=== PATIENT | male | born 1950 ===

== ENCOUNTER 2017-12-21 09:47 | Emergency (ER) | payer MEDICARE ==
[2017-12-21 10:19] VITALS: BMI 39.1
[2017-12-21 10:22] VITALS: O2SAT 96
--- NOTE | 2017-12-21 10:53 | ED PDOC ---
HPI: Male Pain Time Seen by Provider: 12/21/17 10:34 Chief Complaint (Nursing): Male Genitourinary Chief Complaint (Provider): testicle/ groin pain History Per: Patient, Family History/Exam Limitations: no limitations Onset/Duration Of Symptoms: Days (3) Severity: Moderate Quality Of Discomfort: Sharp Associated Symptoms: Fever, Chills. denies: Nausea, Vomiting, Diarrhea, Back Pain, Constipation, Urinary Symptoms Alleviating Factors: None Additional Complaint(s): 67yo male c/o right testicular pain and swelling for 3 days. Denies urinary symptoms but admits to some chills/fever. Past Medical History Reviewed: Historical Data, Nursing Documentation, Vital Signs Vital Signs: Last Vital Signs Temp 98.8 F 12/21/17 10:19 Pulse 73 12/21/17 10:19 Resp 17 12/21/17 10:19 BP 140/117 H 12/21/17 10:19 Pulse Ox 96 12/21/17 10:19 - Medical History PMH: Diabetes, HTN - Surgical History Other surgeries: shoulder, no abd surgeries - Family History Family History: States: Unknown Family Hx - Living Arrangements Living Arrangements: With Family - Social History Current smoker - smoking cessation education provided: No Alcohol: Occasional - Home Medications Home Medications: Ambulatory Orders Medication Instructions Recorded Ibuprofen [Motrin Tab] 600 mg PO Q6 PRN #15 tab 12/21/17 Levofloxacin [Levaquin] 750 mg PO DAILY #7 tablet 12/21/17 - Allergies Allergies/Adverse Reactions: Allergies Allergy/AdvReac Type Severity Reaction Status Date / Time No Known Allergies Allergy Verified 12/21/17 10:43 Review of Systems Constitutional: Positive for: Fever, Chills Cardiovascular: Negative for: Chest Pain, Palpitations Respiratory: Negative for: Cough, Shortness of Breath Gastrointestinal: Negative for: Nausea, Vomiting, Abdominal Pain Genitourinary Male: Positive for: Scrotal Pain. Negative for: Dysuria, Incontinence, Hematuria, Penile Discharge Musculoskeletal: Negative for: Neck Pain, Shoulder Pain, Back Pain, Leg Pain Skin: Negative for: Rash, Lesions, Jaundice Neurological: Negative for: Weakness, Numbness, Altered Mental Status, Dizziness Physical Exam - Reviewed Nursing Documentation Reviewed: Yes Vital Signs Reviewed: Yes - Physical Exam Appears: Positive for: Well, Non-toxic, No Acute Distress Head Exam: Positive for: ATRAUMATIC, NORMAL INSPECTION, NORMOCEPHALIC Skin: Positive for: Normal Color, Warm, DRY Eye Exam: Positive for: EOMI, Normal appearance, PERRL Cardiovascular/Chest: Positive for: Regular Rate, Rhythm Respiratory: Negative for: Respiratory Distress Gastrointestinal/Abdominal: Positive for: Bowel Sounds, Soft. Negative for: Tenderness Male Genital Exam: Positive for: scrotum tenderness (R), testicular tenderness ( R), other (R testicular edema). Negative for: bleeding, urethral discharge Back: Positive for: Normal Inspection Extremity: Positive for: Normal ROM. Negative for: Tenderness Neurologic/Psych: Positive for: Alert, Oriented. Negative for: Motor/Sensory Deficits - Laboratory Results Result Diagrams: 12/21/17 11:54 12/21/17 11:54 - ECG O2 Sat by Pulse Oximetry: 96 Medical Decision Making Medical Decision Making: workup for scrotal tenderness/edema initiated with bloodwork and US testicles r/ o abscess Accession No. : [id number] Patient Name / ID : SNEHA ALBARADO / [id number] Exam Date : 12/21/2017 11:59:02 ( Approved ) Study Comment : Sex / Age : M / 67Y Creator : Jesus Diaz MD Dictator : Jesus Diaz MD It Software Engineer : Phlebotomy Specialist : Jesus Diaz MD Approver2 : Report Date : 12/21/2017 12:49:24 My Comment : HISTORY: R testicular pain/swelling TECHNIQUE: Realtime sonography through the scrotum with color and doppler flow. COMPARISON: None Available. FINDINGS: RIGHT TESTICLE: Measures 2.6 x 2.7 x 2.4 cm. Normal echotexture and flow. RIGHT EPIDIDYMIS: Epididymal head measures 1.2 x 1.2 x 00.8 cm. Enlarged and edematous epididymal body measuring 0.9 x 3.6 cm. Heterogeneous, mildly edematous, increase flow consistent with acute epididymitis. LEFT TESTICLE: Measures 2.8 x 2.6 x 1.8 cm. Normal echotexture and flow. LEFT EPIDIDYMIS: Epididymal head measures 0.9 x 0.5 x 1.2 cm. Grossly unremarkable appearance with normal flow.Incidental finding(s): Simple cyst 0.4 cm HYDROCELE: Large septated hydrocele on the right. VARICOCELE: Bilateral right larger than left. OTHER FINDINGS: None. IMPRESSION: 1. Acute epididymitis, unilateral right-sided. The body of the epididymis is enlarged, heterogeneous and hypervascular. 2. Large septated right hydrocele. 3. Bilateral varicoceles right larger than left. Additional benign and/or incidental findings described above. Case discussed w Dr Beaver his private urologist, including sono report, elevated WBC and reports of low grade fever. He recommended discharge with PO levaquin 750mg and has appt with him on . Patient states feels better in ED, given dose Rocephin IV and will DC w levaquin 750mg UCx and Blood Cx pending Disposition - Clinical Impression Clinical Impression: Epididymitis, UTI (urinary tract infection) - Patient ED Disposition Is Patient to be Admitted: No Counseled Patient/Family Regarding: Studies Performed - Disposition Disposition: Routine/Home Disposition Time: 15:50 Condition: STABLE Additional Instructions: Return to ER for any fever, weakness, worse pain or any concern. See Dr Beaver as scheduled/ Bring ultrasound report with you. Cultures sent- they will be available in 1-3 days. You may need your antibiotics changed based on culture results. Regrese a la tedyd de emergencias por fiebre, debilidad, dolor o cualquier preocupacin. Amarilis al Dr. Beaver el jueves por la maana segn lo programado / Traiga un informe de ultrasonido con usted. Culturas enviadas: estarn disponibles en 1-3 jalloh. Es posible que necesite que le cambien los antibiticos segn los resultados del cultivo. Prescriptions: Ibuprofen [Motrin Tab] 600 mg PO Q6 PRN #15 tab PRN Reason: Pain, Moderate (4-7) Levofloxacin [Levaquin] 750 mg PO DAILY #7 tablet Instructions: Epididymitis (ED), Urinary Tract Infection in Men (ED) Forms: [facility] (Khmer) Print Language: TURKMEN
[2017-12-21 12:10] LABS: BASO # 0.1 K/uL (0.0-0.2); BASO % 0.6 % (0.0-2.0); EOS # 0.2 K/uL (0.0-0.7); EOS % 1.2 % (0.0-4.0); HEMOGLOBIN 13.1 g/dL (12.0-18.0); LYMPH # 2.9 K/uL (1.0-4.3); LYMPH % 19.7 % (20.0-40.0); MEAN CELL VOLUME 96.3 fl (80.0-94.0); MEAN CORPUSCULAR HEMOGLOBIN 31.8 pg (27.0-31.0); MONO # 0.9 K/uL (0.0-0.8); MONO % 6.3 % (0.0-10.0); NEUT # 10.7 K/uL (1.8-7.0); NEUT % 72.2 % (50.0-75.0); RBC 4.11 Mil/uL (4.40-5.90); RED CELL DISTRIBUTION WIDTH 13.1 % (11.5-14.5); WHITE BLOOD COUNT 14.8 K/uL (4.8-10.8)
[2017-12-21 12:20] LABS: SQUAMOUS EPITHIAL 4 /hpf (0-5); URINE BACTERIA MOD (<OCC); URINE BILIRUBIN NEGATIVE (NEGATIVE); URINE BLOOD SMALL (NEGATIVE); URINE CLARITY CLOUDY (Clear); URINE COLOR YELLOW (YELLOW); URINE GLUCOSE (UA) NEG (Normal); URINE HYALINE CAST 0-2 /hpf (0-2); URINE LEUKOCYTE ESTERASE MOD Leu/uL (Negative); URINE NITRATE NEGATIVE (NEGATIVE); URINE PROTEIN 30 mg/dL (NEGATIVE)
[2017-12-21 12:23] LABS: ALB/GLOB RATIO 1.2 (1.0-2.1); ALBUMIN 4.2 g/dL (3.5-5.0); ALT/SGPT 37 U/L (21-72); AST/SGOT 28 U/L (17-59); BLOOD UREA NITROGEN 20 mg/dl (9-20); CALCIUM 9.2 mg/dL (8.4-10.2); GFR AFRICAN-AMERICAN > 60; GFR NON-AFRICAN AMERICAN > 60
--- NOTE | 2017-12-21 12:50 | US ---
HISTORY: R testicular pain/swelling TECHNIQUE: Realtime sonography through the scrotum with color and doppler flow. COMPARISON: None Available. FINDINGS: RIGHT TESTICLE: Measures 2.6 x 2.7 x 2.4 cm. Normal echotexture and flow. RIGHT EPIDIDYMIS: Epididymal head measures 1.2 x 1.2 x 00.8 cm. Enlarged and edematous epididymal body measuring 0.9 x 3.6 cm. Heterogeneous, mildly edematous, increase flow consistent with acute epididymitis. LEFT TESTICLE: Measures 2.8 x 2.6 x 1.8 cm. Normal echotexture and flow. LEFT EPIDIDYMIS: Epididymal head measures 0.9 x 0.5 x 1.2 cm. Grossly unremarkable appearance with normal flow.Incidental finding(s): Simple cyst 0.4 cm HYDROCELE: Large septated hydrocele on the right. VARICOCELE: Bilateral right larger than left. OTHER FINDINGS: None. IMPRESSION: 1. Acute epididymitis, unilateral right-sided. The body of the epididymis is enlarged, heterogeneous and hypervascular. 2. Large septated right hydrocele. 3. Bilateral varicoceles right larger than left. Additional benign and/or incidental findings described above.
[2017-12-21 16:45] VITALS: BP 148/85; PULSE 89; RESP 16; TEMP 98
== END 2017-12-21 16:40 | disposition home or self-care (01) ==
LOC: H.ER 09:47
DX: N39.0 Urinary tract infection, site not specified (principal); N45.1 Epididymitis; E11.9 Type 2 diabetes mellitus without complications; I10 Essential (primary) hypertension
CPT/HCPCS: 80053; 81003; 82948; 85025; 87040; 87086; 87181; 93975; 96360; 99284; J0696